=== PATIENT | male | born 1975 | race Caucasian/White ===

== ENCOUNTER → 2016-06-24 | Outpatient (CLI) | payer BC ==
[~2016-06-24] MED LIST: ALBU1AER9 INH; BECL1AER5 INH; FLUT0.15 NAE; HYDR-3419 PO; METH500T3 PO; OMEP20CA9 PO; PRED20TA PO; TSSP PO
--- NOTE | 2016-06-24 12:43 | DIAGNOSTIC IMAGING REPORT ---
TESTICULAR ULTRASOUND HISTORY: N43.40 [id number] Varicocele COMPARISON: None. FINDINGS: Right testis: 4.5 x 2.0 x 2.8 cm. There are no intratesticular masses. Normal color flow. No hydrocele. 3 mm cyst within the right epididymal head.. Left testis: 4.4 x 2.0 x 2.8 cm. There are no intratesticular masses. Normal color flow. No hydrocele. Small left-sided varicocele. There is a 4.9 x 2.8 x 4.0 cm simple cyst adjacent to the left testis. The exact location is difficult to identify due to the large size. There is also a 10 x 9 x 6 mm cyst along the anterior surface of the testis which likely represents a tunica albuginea cyst. IMPRESSION: 1. Normal bilateral testes. 2. Small left-sided varicocele. 3. A 4.9 x 2.8 x 4.2 cm simple cyst adjacent to the left testis. The exact location of this lesion is difficult to identify due to its large size. However, this favors an epididymal cyst/spermatocele. Electronically signed by: Tj Truong M.D. 06/24/2016 12:41 PM Dictated Date/Time: 06/24/2016 12:37 PM
== END | disposition home or self-care (01) ==
LOC: C.ULTR 11:19
PROVIDERS: ATTEND Urology
DX: I86.1 Scrotal varices (principal); N43.40 Spermatocele of epididymis, unspecified

== ENCOUNTER 2016-07-09 13:03 | Day surgery (SDC) | payer BC ==
[2016-06-24 12:22] LABS: BASO % 0.7 %; BASO ABS # 0.04 K/uL (0-0.2); COMPLETE YES; EOS % 2.3 %; HEMATOCRIT 45.6 % (42-52); IG% 0.8 %; LYMPH % 34.2 %; LYMPH ABS # 2.04 K/uL (1.2-3.4); MEAN CELL VOLUME 81.4 fL (80-100); MEAN CORPUSCULAR HEMOGLOBIN 29.1 pg (25-34); MEAN CORPUSCULAR HGB CONC 35.7 g/dl (32-36); MEAN PLATELET VOLUME 9.7 fL (7.4-10.4); MONO % 6.5 %; NEUT % 55.5 %; PLATELET COUNT 149 K/uL (130-400); WHITE BLOOD COUNT 5.97 K/uL (4.8-10.8)
[2016-06-24 12:28] VITALS: BMI 28.0
--- NOTE | 2016-06-24 12:46 | PAT Medication Instructions ---
Service Date Jun 24, 2016. Current Home Medication List Albuterol Sulfate (Proair Hfa), 2 PUFFS INH QID PRN for Shortness of Breath Benzonatate (Benzonatate), 100 MG PO UD PRN for Cough Fluticasone Propionate (Nasal) (Flonase Allergy Relief), 2 SPRAYS WILLOW DAILY Methylcellulose (Laxative) (Citrucel), 2 TABS PO QAM Omeprazole (Prilosec), 20 MG PO QAM Medication Instructions For Your Scheduled Surgery - Hold the following medications the morning of surgery: Methylcellulose (Laxative) (Citrucel), 2 TABS PO QAM Benzonatate (Benzonatate), 100 MG PO UD PRN for Cough - Take the following medications the morning of surgery with a sip of water: Omeprazole (Prilosec), 20 MG PO QAM Fluticasone Propionate (Nasal) (Flonase Allergy Relief), 2 SPRAYS WILLOW DAILY Albuterol Sulfate (Proair Hfa), 2 PUFFS INH QID PRN for Shortness of Breath (if needed)- bring with you to hospital for day of surgery - Take the following medications as scheduled the night before surgery: Albuterol Sulfate (Proair Hfa), 2 PUFFS INH QID PRN for Shortness of Breath Benzonatate (Benzonatate), 100 MG PO UD PRN for Cough If you have any questions please call us at [phone] (Isaura Olson PA-C) or [phone] or [phone]
[2016-06-24 13:03] LABS: URINE APPEARANCE CLEAR (CLEAR); URINE BILIRUBIN NEG (NEG); URINE COLOR YELLOW; URINE NITRITE NEG (NEG); URINE SPECIFIC GRAVITY 1.018 (1.000-1.030); UROBILINOGEN NEG (NEG)
[2016-06-24 13:11] LABS: BUN/CREATININE RATIO 12.6 (10-20); CALCIUM 8.9 mg/dl (8.5-10.1); CREATININE 1.1 mg/dl (0.60-1.40); POTASSIUM 4.1 mmol/L (3.5-5.1)
[2016-06-24 13:14] LABS: MANUAL MICROSCOPIC REQUIRED? NO; REVIEW REQ? NO
--- NOTE | 2016-06-24 14:42 | DIAGNOSTIC IMAGING REPORT ---
CHEST PREADMISSION(PA/LAT) CLINICAL HISTORY: Preoperative evaluation. COMPARISON STUDY: Chest radiograph January 16, 2009. FINDINGS: Lung volumes are normal. There is no pneumothorax or pleural effusion. There is no evidence of pulmonary edema. Cardiac size is normal. Mediastinal contours are normal. IMPRESSION: No acute cardiopulmonary findings. Electronically signed by: Steve Gibbons M.D. 06/24/2016 2:40 PM Dictated Date/Time: 06/24/2016 2:39 PM
[~2016-07-09] VITALS: Ht 175.3 cm; Wt 88.7 kg
[~2016-07-09 13:03] MED LIST changes: -BECL1AER5 INH; +CEFAZOLIN 2000 MG/60 ML D5W IV SCH; -HYDR-3419 PO; +LACTATED RINGER'S 1000ML 1,000 ML IV SCH; -PRED20TA PO
[2016-07-09 13:27] VITALS: BP 129/76; PULSE 83; TEMP 36.7; O2SAT 96; Ht 175.3 cm; Wt 88.7 kg
[2016-07-09] MEDS ORDERED: LIDOCAINE HCL 2% 2 ML VIAL (20MG/ML) ONE (15:00)
[2016-07-09] MEDS ORDERED: PROPOFOL IV EMULSION 10 MG/ML 20 ML VIAL IV ONE (15:00)
[2016-07-09] MEDS ORDERED: MIDAZOLAM HCL 1 MG/ML 2ML VIAL ONE (15:00)
[2016-07-09] MEDS ORDERED: FENTANYL CITRATE INJ 50 MCG/1 ML 2 ML VIAL ONE ×2 (15:01→15:48)
--- NOTE | 2016-07-09 15:01 | History & Physical Bridge Note ---
H&P Re-Evaluation Bridge Note: I have examined the patient, reviewed the History & Physical and in the interval since the performance of the History & Physical I have noted the following changes of clinical significance: No changes noted
[2016-07-09] MEDS ORDERED: ONDANSETRON INJ 2 MG/ML 2 ML VIAL ONE (15:15)
[2016-07-09] MEDS ORDERED: DEXAMETHASONE SOD INJ 4 MG/ML VIAL ONE (15:15)
[2016-07-09] MEDS ORDERED: BUPIVACAINE 0.5 % 5 MG/1 ML MPF 30ML VIAL ONE (15:24)
[2016-07-09] MEDS ORDERED: PROMETHAZINE HCL INJ 12.5 MG in SODIUM CHLORIDE 0.9% 50ML 50 ML IV PRN (15:45)
[2016-07-09] MEDS ORDERED: HYDROmorphone INJ 1 MG/ML SYR IV PRN (15:45)
[2016-07-09] MEDS ORDERED: ATROPINE SULFATE 0.1 MG/ML 5ML SYR IV PRN (15:45)
[2016-07-09] MEDS ORDERED: EpHEDrine SULFATE INJ 50 MG/ML AMP IV PRN (15:45)
[2016-07-09] MEDS ORDERED: ONDANSETRON INJ 2 MG/ML 2 ML VIAL IV PRN (15:45)
[2016-07-09] MEDS ORDERED: NALOXONE HCL 0.4 MG/1 ML VIAL/CARP IV PRN (15:45)
[2016-07-09] MEDS ORDERED: BACITRACIN OINT 15 GM TUBE ONE (16:21)
--- NOTE | 2016-07-09 16:28 | [facility] Post Operative Brief Note ---
Immediate Operative Summary Operative Date Jul 09, 2016. Pre-Operative Diagnosis Spermatocele Post-Operative Diagnosis Spermatocele; small hydrocele; spermatic cord cyst x2 Procedure(s) Performed Left Spermatocelectomy Surgeon Dr. Fareed Ladd Export Manager Surgeon(s) none Estimated Blood Loss 5cc Findings As per dictation Specimens A. Spermatocele B. Spermatic Cord Cysts (x2) Drains [place] Anesthesia gen Complication(s) None Disposition Recovery Room / PACU (stable)
[2016-07-09] MEDS ORDERED: HYDR-3419 PO (16:29)
[2016-07-09] MEDS ORDERED: SODIUM CHLORIDE 0.9% 1000ML 1,000 ML IV SCH (16:32)
--- NOTE | 2016-07-09 16:32 | Discharge Instructions ---
Discharge Instructions Date of Service Jul 09, 2016. Admission Reason for Admission: Spermatocele Discharge Discharge Diagnosis / Problem: spermatocele Discharge Goals Goal(s): Decrease discomfort, Improve function, Increase independence, Improve disease control Activity Recommendations Activity Limitations: per Instructions/Follow-up section Lifting Limitations: gradually increase as tolerated Exercise/Sports Limitations: until after follow-up appointment May Resume Sexual Activity: when tolerated Shower/Bathe: may shower/bathe in 3 days Driving or Machine Use: you may return to driving after your catheter is removed . Instructions / Follow-Up Instructions / Follow-Up Please come to Dr. Ladd's office tomorrow morning to have your catheter removed. Discharge Diet Recommended Diet: Regular Diet Procedures Procedures Performed: Left Spermatocelectomy Pending Studies Studies pending at discharge: no Medical Emergencies . Who to Call and When: Medical Emergencies: If at any time you feel your situation is an emergency, please call 911 immediately. . Non-Emergent Contact Non-Emergency issues call your: Urologist Call Non-Emergent contact if: you have a fever, temperature is above 101.5, your pain is not controlled, your pain is worsening . . "Provider Documentation" section prepared by Dick Gutierres. . VTE Core Measure Inpt VTE Proph given/why not?: Treatment not indicated [place] Drug Monitoring Program Search Results: patient reviewed within database, no issues identified
[2016-07-09] MEDS ORDERED: OXYCODONE/ACETAMINOPHEN 5-325 TAB PO PRN ×2 (16:45)
--- NOTE | 2016-07-09 17:00 | Anesthesiology Progress Note ---
Anesthesia Post Op Note Date & Time Jul 09, 2016 at 16:59 Vital Signs Pain Intensity: 0 Vital Signs Past 12 Hours Date Time Temp Pulse Resp B/P Pulse Ox O2 Delivery O2 Flow Rate FiO2 07/09/16 16:40 75 19 07/09/16 16:40 74 19 124/78 97 07/09/16 16:35 79 10 07/09/16 16:35 78 10 129/72 89 07/09/16 16:30 83 11 07/09/16 16:30 85 11 121/77 95 07/09/16 16:28 124/75 07/09/16 16:26 128/72 07/09/16 16:25 92 94 07/09/16 16:25 36.4 88 18 128/72 96 Mask 10 07/09/16 16:25 92 07/09/16 13:27 36.7 83 18 129/76 96 Room Air Notes Mental Status: alert / awake / arousable, participated in evaluation Pt Amnestic to Procedure: Yes Nausea / Vomiting: adequately controlled Pain: adequately controlled Airway Patency, RR, SpO2: stable & adequate BP & HR: stable & adequate Hydration State: stable & adequate Anesthetic Complications: no major complications apparent
--- NOTE | 2016-07-09 17:06 | OPERATIVE REPORT ---
DATE OF OPERATION: 07/09/2016 PREOPERATIVE DIAGNOSIS: Left spermatocele. POSTOPERATIVE DIAGNOSES: 1. Left spermatocele, small left hydrocele. 2. Spermatic cord cysts. ANESTHESIA: General. ESTIMATED BLOOD LOSS: 5 mL URINE OUTPUT: Not recorded. COMPLICATIONS: There were no complications. DRAINS: Josias. SPECIMEN: 1. Spermatocele. 2. Spermatic cord cyst x2. PROCEDURE PERFORMED: Left scrotal spermatocelectomy and excision of scrotal cyst x2. DESCRIPTION OF THE PROCEDURE: Da Mohr was identified in the preoperative holding area, appropriate informed consents were reviewed and completed and the patient was transported to the operating suite. Upon arrival, he received appropriate antibiotics in the form of Ancef. Adequate general anesthesia was achieved and the patient was placed in supine position where he was sterilely prepped and draped in standard fashion. A left-sided spermatocele located immediately adjacent to the testis was easily palpable and very mobile making it amenable to midline rhaphe incision. Incision of approximately 4 cm was made overlying the spermatocele while tenting the skin. I was able to dissect through the superficial tissues including dartos fascia until I was able to deliver the testis and spermatocele through the incision. I then skeletonized it completely with care to avoid puncture. I was able to gently dissect them away circumferentially around the spermatocele until I identified a communication with the epididymis. I suture ligated this with a 3-0 Vicryl stitch at that juncture between the epididymis and spermatocele. Then I excised all tissue lateral and outside of the epididymis and the stitch. There was minimal inflammation and irritation around this and he tolerated this portion of the procedure well. Inspection revealed that there was also a small adjacent hydrocele which I opened in the process of dissecting spermatocele. I explored this, there was minimal redundant sac and no need to excise additional sac. As I inspected the cord, I did note that he has a small cord lipoma. This was left as it was identified without disturbing it. He had 2 other small fluid-filled cysts in the spermatic cord. These did not appear to be adjacent to any clear underlying structure i.e., the vas, epididymis or blood vessels. They were very mobile and I was able to easily excise these from the underlying tissue with simply use of electrocautery without identifying communication and also without puncturing either of these cysts. These were both passed off the table. I subsequently confirmed hemostasis and I oversewed the cut edge of the hydrocele sac with a running 2-0 Vicryl stitch and then returned this testis to its little traverse position in the scrotum. I did place a quarter inch Josias drain through the dependent portion of the left hemiscrotum. I then reapproximated to the raphae and dartos fascia utilizing a running 2-0 Vicryl stitch followed by closure of the skin with 3-0 chromic vertical mattress stitches. The wound was infiltrated with 0.5% Marcaine as was the cord. I did suture the drain in place with a 2-0 chromic. Case was subsequently concluded, the patient was reversed from anesthesia and taken to the PACU in stable condition. I attest to the content of the Intraoperative Record and any orders documented therein. Any exceptio ns are noted below.
[2016-07-09 17:13] VITALS: BP 132/87; PULSE 77; TEMP 36.3; O2SAT 100
[2016-07-09 17:45] VITALS: BP 124/77; PULSE 84; TEMP 36.5; O2SAT 92
[2016-07-09 18:15] VITALS: BP 118/76; PULSE 79; TEMP 36.5; O2SAT 92
== END 2016-07-09 18:36 | disposition home or self-care (01) ==
LOC: C.ACU 13:03
PROVIDERS: ATTEND Urology
DX: N43.40 Spermatocele of epididymis, unspecified (principal); N43.3 Hydrocele, unspecified; K21.9 Gastro-esophageal reflux disease without esophagitis; E78.00 Pure hypercholesterolemia, unspecified; Z90.49 Acquired absence of other specified parts of digestive tract; Z84.1 Family history of disorders of kidney and ureter